=== PATIENT | female | born 1970 | race Caucasian/White ===

== ENCOUNTER 2020-04-26 00:38 | Outpatient (CLI) | payer OTHER, SELFPAY ==
[2020-04-26 18:36] LABS: SARS-CoV-2 RNA PCR Negative
== END 2020-04-26 00:39 | disposition home or self-care (01) ==
LOC: ANHCOVIDDT 00:38
PROVIDERS: PCP Internal Medicine; Visit Provider Surgery Plastic and Reconstructive Surgery
DX: Z01.812 Encounter for preprocedural laboratory examination (principal); Z11.59 Encounter for screening for other viral diseases
CPT/HCPCS: 87635; C9803; U0003

== ENCOUNTER 2020-04-28 09:56 | Day surgery (SDC) | payer OTHER, SELFPAY ==
[2020-04-18 15:45] VITALS: BMI 27.3
[2020-04-28] VITALS (7 sets, daily range): BP systolic 123–131; BP diastolic 71–81; PULSE 84–112; RESP 14–17; TEMP 36.9–37.1; O2SAT 94–100; BMI 27.5
[2020-04-28] MEDS: LACTATED RINGERS 1,000 ML 30 ML IV CONT ×2 (11:03→13:13)
[2020-04-28] MEDS: SCOPOLAMINE 1.5 MG PATCH TRANSDERM (11:04)
--- NOTE | 2020-04-28 11:59 | P.OP_ITS ---
Procedure Note - Detailed Date of procedure: 04/28/20 Pre-op diagnosis: micromastia Post-op diagnosis: same Procedure performed: Bilateral Breast Augmentation Description of procedure: She is here today for bilateral breast augmentation. Previously and again today the risks, benefits, alternatives were discussed in extensive detail. I wanted her to be very realistic about the risks involved as well as expectations. We discussed aftercare and what to monitor for. Made sure answered all of her questions to her satisfaction today and consent was obtained. Marked in the preoperative holding area with their verification. The patient w as taken to the operating room placed supine on the operating table. Anesthesia was provided by anesthesiology. A surgical time-out was taken. We cleansed the skin and 1% lidocaine and 0.25% Marcaine with epinephrine was used anesthetize as a field block. She was prepped and draped in a standard sterile fashion. Tegaderm nipple Henderson were placed. A 15 blade used to make an incision along the inframammary fold. Dissection was continued at 45 degree angle until the chest wall as identified. I elevated above the pectoralis in a dual plane 2 manner. I incised the pectoralis major along its inferior border and completely released the inferior border leaving the medial border intact. I created a subpectoral pocket in the appropriate dimensions based on our preoperative planning for the implant. I then copiously irrigated with saline solution and verified a strict hemostasis. Next the use a triple antibiotic and Betadine containing solution to irrigate the pocket. I washed my gloves with the triple antibiotic and Betadine solution. We washed the implant immediately upon opening it with this solution and only opened it when we needed it. I used implant funnel and no-touch jacklyn hnique. The implant was introduced into the pocket using the funnel. Having verified positioning of the implant this was closed using 2-0 Vicryl followed by 3-0 Monocryl in a running subcuticular 4-0 Monocryl followed by tissue glue. Fluffs, Alejandro wrap, and surgical bra were placed. Patient was awoke and taken to PACU without difficulty. All instrument sponge counts were correct at the end of the case. Anesthesia: GLMA Surgeon: Mahad Limon MD Estimated blood loss (mL): 2 Drains: No Packing: No Pathology: none sent Complications: No immediate complications Condition: stable Disposition: PACU Findings: Bilateral dual plane 2 augmentation Ashly Narayan SoftTouch 440cc. Right: REF# [id number] Left: REF# [id number]
--- NOTE | 2020-04-28 12:07 | WPDANESEPPF ---
Anes - Initial Pre Proc Eval Procedure: Operation Date: 04/28/20 11:30 Proposed Procedures p Bilateral Breast Augmentation(Bilateral) - Mahad Limon MD Date/Time: 04/28/20 12:07 Surgeon: Mahad Limon MD Pre Op Diagnosis: micromastia Patient Data Age: 49 Gender: F Height: 5 ft 6 in Weight: 77.3 kg Last Vital Signs Temp 37.1 C 04/28/20 10:59 Pulse 84 04/28/20 10:59 Resp 14 04/28/20 10:59 BP 123/80 04/28/20 10:59 Pulse Ox 98 04/28/20 10:59 Allergies Allergy/AdvReac Type Severity Reaction Status Date / Time No Known Allergies Allergy Verified 04/28/20 10:55 Home Medications Medication Instructions Recorded Confirmed Type lisinopril 10 mg tablet 10 mg PO DAILY tablet 04/06/20 04/28/20 History levonorgestrel [Mirena] 56 device INTRAUTERINE USEASDIRECTD 04/18/20 04/28/20 History Patient hx anesthesia problems: post op nausea/vomiting Family hx anesthesia problems: none PMFSH Past Medical History Medical History High blood pressure Surgical History Surgical History History of delivery 08/2004 Hx laparoscopic cholecystectomy 05/2005 Hx of LASIK 02/2019 Social History Social History Smoking status: Never smoker Alcohol intake: current Anes - Eval Final PreProcedure Day of Procedure 04/28/20 12:07 Patient weight: overweight Heart: regular rate and rhythm Lungs: clear to auscultation Airway: Mallampati scale class II Neurological: alert and oriented Last oral intake: >/= 8 hours ASA classification: II Emergent: no Anesthetic plan: proceed Anesthesia type and monitoring: general LMA and standard monitoring Informed Consent: The patient's anesthetic plan and its attendant risks and benefits were discussed with the patient/family/POA. Questions were solicited and answers provided to the satisfaction of the patient/family/POA.
--- NOTE | 2020-04-28 12:12 | WPDHPUPDATE1 ---
History and Physical Update Update Date/Time: 04/28/20 12:12 History and Physical has been reviewed, including an updated exam of the patient. There are NO changes in the patient's condition. Risks, benefits, and alternatives have been discussed and questions answered. Patient agrees to proceed with procedure.
[2020-04-28] MEDS: LIDO 1%/EPINEPHRINE 1:100,000 20 ML VIAL 30 ML INFILTRATE (12:56)
--- NOTE | 2020-05-19 07:33 | WPDANESPN ---
Anes - Prog Note Post-Op Date/Time: 05/19/20 07:33 Cardiovascular status: normal Respiratory status: normal Airway patency: baseline Mental status: baseline Post-Op hydration status: normal Vital Signs: Last Vital Signs Temp 36.9 C 04/28/20 13:13 Pulse 85 04/28/20 14:04 Resp 15 04/28/20 14:04 BP 127/77 04/28/20 14:04 Pulse Ox 94 04/28/20 14:04 Pain Score (VAS): 1 Patient Feedback: Patient satisfied with anesthetic care. Other Findings: late entry
== END 2020-04-28 14:23 | disposition home or self-care (01) ==
PROVIDERS: PCP Internal Medicine; Visit Provider Surgery Plastic and Reconstructive Surgery
DX: N64.82 Hypoplasia of breast (principal)
CPT/HCPCS: 19325